=== PATIENT | female | born 1955 | race Caucasian/White ===

== ENCOUNTER 2019-07-13 01:40 | Day surgery (SDC) | payer BC, SELFPAY ==
[2019-07-08 14:30] VITALS: BMI 37.0
[2019-07-13 08:10] VITALS: PULSE 80; RESP 18; TEMP 36.2; O2SAT 99; BMI 36.0
--- NOTE | 2019-07-13 08:27 | P.HP_ITS ---
History of Present Illness History of Present Illness Consent: Risks, benefits, and alternatives have been discussed and questions answered. Patient agrees to proceed with procedure. Chief complaint: family hx colon ca Narrative: Deepa Negron is a 64 year old W female undergoing screening colonoscopy secondary to history of colon polyps in her mother and questionable maternal uncle had colon cancer. Patient is asymptomatic. Last colonoscopy was 3 years ago. PMFSH Past Medical History Medical History (Updated 07/13/19 @ 08:28 by Lyle Mohan MD) History of migraine Surgical History Surgical History (Updated 07/13/19 @ 08:28 by Lyle Mohan MD) Status post breast biopsy [place] teeth extracted Meds Home Medications and Allergies Home Medications Medication Instructions Recorded Confirmed Type cyclosporine [Restasis] 1 drp OPHTHALMIC (EYE) Q12H 07/08/19 07/08/19 History valacyclovir 500 mg PO DAILY 07/08/19 07/08/19 History Allergies Allergy/AdvReac Type Severity Reaction Status Date / Time STEROID EYE DROPS Allergy Intermediate INCREASED Uncoded 07/13/19 08:08 PRESSURE IN HER EYE Vital Signs Vital Signs - 24 hr 07/13/19 08:10 Temperature 36.2 C L Pulse Rate 80 Respiratory Rate 18 Pulse Oximetry 99 Exam Const: Orientation/consciousness: patient oriented x3 Resp: Auscultation: clear to auscultation bilaterally Cardio: Rate: regular rate Rhythm: regular rhythm Heart sounds: no murmu rs GI: GI Palp: Yes Soft to palpation, No Tenderness to palpation present (GI), Yes No hepatosplenomegaly present and No Palpable mass present Auscultation: normal bowel sounds Neuro: General: patient oriented x3 and no focal motor deficits Extrem: General: no pedal edema Assessment and Plan Additional Plan screening colonoscopy secondary history of colonic polyps in her mother
--- NOTE | 2019-07-13 08:33 | WPDANESEPPF ---
Anes - Initial Pre Proc Eval Procedure: Operation Date: 07/13/19 09:00 Proposed Procedures p Screening Colonoscopy - Lyle Mohan MD Date/Time: 07/13/19 08:33 Surgeon: Lyle Mohan MD Pre Op Diagnosis: family hx colon ca Patient Data Age: 64 Gender: F Height: 5 ft 2 in Weight: 89.4 kg Last Vital Signs Temp 36.2 C L 07/13/19 08:10 Pulse 80 07/13/19 08:10 Resp 18 07/13/19 08:10 Pulse Ox 99 07/13/19 08:10 Allergies Allergy/AdvReac Type Severity Reaction Status Date / Time STEROID EYE DROPS Allergy Intermediate INCREASED Uncoded 07/13/19 08:08 PRESSURE IN HER EYE Home Medications Medication Instructions Recorded Confirmed Type cyclosporine [Restasis] 1 drp OPHTHALMIC (EYE) Q12H 07/08/19 07/08/19 History valacyclovir 500 mg PO DAILY 07/08/19 07/08/19 History Patient hx anesthesia problems: none Family hx anesthesia problems: none [facility] Past Medical History Medical History History of migraine Surgical History Surgical History Status post breast biopsy [place] teeth extracted Anes - Eval Final PreProcedure Day of Procedure 07/13/19 08:33 Patient weight: obese Heart: regular rate and rhythm Lungs: clear to auscultation Airway: Mallampati scale class II Last oral intake: >/= 8 hours ASA classification: II Emergent: no Anesthetic plan: proceed Anesthesia type and monitoring: general and standard monitoring Informed Consent: The patient's anesthetic plan and its attendant risks and benefits were discussed with the patient/family/POA. Questions were solicited and answers provided to the satisfaction of the patient/family/POA.
[2019-07-13] MEDS: LACTATED RINGERS 1,000 ML 150 ML IV CONT (09:21)
[2019-07-13 09:24] VITALS: BP 115/71; PULSE 79; RESP 19; O2SAT 93
[2019-07-13 09:34] VITALS: BP 120/78; PULSE 70; RESP 15; O2SAT 98
[2019-07-13 09:44] VITALS: BP 127/85; PULSE 66; RESP 17; O2SAT 97
== END 2019-07-13 10:03 | disposition home or self-care (01) ==
PROVIDERS: PCP Internal Medicine; Visit Provider Internal Medicine Gastroenterology
PROC: 0DJD8ZZ Inspection of Lower Intestinal Tract, Via Natural or Artificial Opening Endoscopic (ICD-10-PCS; CPT 45378; principal; 2019-07-13 09:00)
DX: Z12.11 Encounter for screening for malignant neoplasm of colon (principal); K64.8 Other hemorrhoids; Z83.71 Family history of colonic polyps; E66.9 Obesity, unspecified; Z68.36 Body mass index [BMI] 36.0-36.9, adult
CPT/HCPCS: 45378; J2704; J7120

== ENCOUNTER → 2019-07-28 16:09 | Outpatient (CLI) | payer BC, SELFPAY ==
--- NOTE | ~2019-07-28 | XR_ITS ---
EXAMINATION: XR elbow LT min 3V DATE: 07/28/2019 16:43 INDICATION: Left elbow injury and pain. TECHNIQUE: 4 views of left elbow were obtained. COMPARISON: None. FINDINGS: Bone alignment is normal. No fracture. Joint spaces are well maintained. There is no elbow joint effusion. IMPRESSION: 1. No fracture. Reviewed, dictated and finalized at location A. IMPRESSION: 1. No fracture.
--- NOTE | ~2019-07-28 | XR_ITS ---
EXAMINATION: XR ribs LT 2V w CXR 2V EXAM DATE: 07/28/2019 16:43 INDICATION: Left rib pain, fall, initial encounter. TECHNIQUE: Frontal projection of the upper left ribs, frontal projection of the lower left ribs, obli que projection of the left ribs, frontal and lateral chest x-ray(s) for interpretation. Correlation i s made to chest x-ray 02/02/2014. FINDINGS: Probable acute nondisplaced left fifth and possibly sixth rib fractures laterally. There is no soft tissue abnormality seen. No confluent consolidation, pneumothorax or pleural effusion susp ected. Cardiomediastinal silhouette is normal. IMPRESSION: Probable acute nondisplaced left fifth and sixth rib fractures laterally. Reviewed, dictated and finalized at location A. IMPRESSION: Probable acute nondisplaced left fifth and sixth rib fractures [facility].
--- NOTE | ~2019-07-28 | XR_ITS ---
EXAMINATION: XR femur LT min 2V DATE: 07/28/2019 16:43 INDICATION: Left thigh pain. Fall. TECHNIQUE: 2 views of left femur on 4 radiographs were obtained. COMPARISON: None. FINDINGS: Bone alignment is normal. No fracture. There is mild left hip and knee osteoarthritis. No k nee joint effusion. IMPRESSION: 1. Mild polyarticular osteoarthritis. Reviewed, dictated and finalized at location A.
== END ==
PROVIDERS: PCP Internal Medicine; Visit Provider Internal Medicine
DX: R07.81 Pleurodynia (principal); M79.609 Pain in unspecified limb; M16.12 Unilateral primary osteoarthritis, left hip
CPT/HCPCS: 71045; 71101; 73080; 73552

== ENCOUNTER 2022-09-28 09:33 | Outpatient (CLI) | payer MEDICARE, SELFPAY ==
--- NOTE | ~2022-09-28 | US_ITS ---
US art doppler w press LE BI INDICATION: Peripheral vascular disease. TECHNIQUE: Segmental pressures and plethysmographic and Doppler waveforms of the brachial and lower e xtremity arteries were obtained. COMPARISON: None. FINDINGS: Right and left brachial artery pressures of 136 mm Hg and 131 mm Hg, respectively, are concordant (no rmal difference <= 30 mmHg). The right ankle-brachial index (EMEKA) is 1.07 (normal >= 0.9-1.0). The right great toe-brachial index (TBI) is 0.66 (normal >= 0.60). The left EMEKA is 0.99. The left TBI is 0.73. IMPRESSION: 1. Normal bilateral ankle and toe brachial indices. Reviewed, dictated and finalized at location B.
== END 2022-09-28 09:34 | disposition home or self-care (01) ==
LOC: ANHIMG 09:36
PROVIDERS: PCP Internal Medicine; Visit Provider Internal Medicine
DX: I73.9 Peripheral vascular disease, unspecified (principal)
CPT/HCPCS: 93923

== ENCOUNTER 2024-10-19 12:34 | Outpatient (CLI) | payer MEDICARE, SELFPAY ==
--- NOTE | ~2024-10-19 | XR_ITS ---
XR knee LT 3V 10/19/2024 12:54 INDICATION: Left knee pain PROCEDURE: 3 views left COMPARISON: No prior studies for comparison. FINDINGS: Fracture, dislocation or subluxation is not identified. No significant joint effusion. The soft tissues appear within normal limits. No foreign bodies are identified. IMPRESSION: 1: NO ACUTE BONE OR JOINT ABNORMALITY IDENTIFIED. Reviewed, dictated and finalized at location A.
--- NOTE | ~2024-10-19 | XR_ITS ---
XR hip LT min 2V 10/19/2024 12:54 Indication: Left hip pain Procedure: 2 views left hip Comparison: 07/28/2019 Findings: No fracture, subluxation or dislocation. There is mild osteoarthritis of the left hip. No e rosive changes. No soft tissue abnormality. No foreign bodies. Impression: 1: Mild osteoarthritis of the left hip. Reviewed, dictated and finalized at location A. Impression: 1: Mild osteoarthritis of the left hip.
== END 2024-10-19 12:35 | disposition home or self-care (01) ==
LOC: MICIMG 12:36
PROVIDERS: PCP Internal Medicine; Visit Provider Internal Medicine
DX: M25.562 Pain in left knee (principal); M16.12 Unilateral primary osteoarthritis, left hip
CPT/HCPCS: 73502; 73562